=== PATIENT | female | born 2000 | race Caucasian/White ===

== ENCOUNTER 2018-12-08 18:20 | Emergency (ER) | payer OTHER ==
[~2018-12-08] VITALS: Ht 170.2 cm; Wt 62.7 kg
[2018-12-08 18:38] VITALS: BP 144/81
[2018-12-08] MEDS ORDERED: LIDOcaine 40mg/ml topical solution MM ONE (20:05)
[2018-12-08] MEDS ORDERED: LIDOcaine/epinephrine TOPICAL 5 ML BTL TOP ONE (20:15)
== END 2018-12-08 20:34 | disposition home or self-care (01) ==
LOC: ER 18:23
DX: L02.415 Cutaneous abscess of right lower limb (principal)
CPT/HCPCS: 99284; J2001